=== PATIENT | female | born 1975 | race Caucasian/White ===

== ENCOUNTER 2017-11-17 02:37 | Emergency (ER) | payer OTHER ==
[~2017-11-17] VITALS: Ht 157.5 cm; Wt 101.6 kg
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
[2017-11-17] MEDS ORDERED: HYDROCODONE/APAP 10MG-325MG TAB PO ONE (04:45)
== END 2017-11-17 05:26 | disposition home or self-care (01) ==
LOC: ER 02:37
DX: S00.83XA Contusion of other part of head, initial encounter (principal); S00.12XA Contusion of left eyelid and periocular area, initial encounter; Y04.8XXA Assault by other bodily force, initial encounter; Y92.008 Other place in unspecified non-institutional (private) residence as the place of occurrence of the external cause
CPT/HCPCS: 70450; 70486; 71046; 72125; 99283